=== PATIENT | female | born 1975 | race African-American/Black ===

== ENCOUNTER 2017-10-15 08:35 | Emergency (ER) | payer MEDICARE ==
[~2017-10-15] VITALS: Ht 170.2 cm; Wt 127.0 kg
[2017-10-15 08:38] VITALS: BP 135/90; PULSE 89; RESP 16; TEMP 98.5; O2SAT 97
[2017-10-15] MEDS ORDERED: COUM10TA PO (08:56)
[2017-10-15] MEDS ORDERED: MULTTAB67 PO (08:56)
[2017-10-15] MEDS ORDERED: AMIT50TA3 PO (08:56)
[2017-10-15] MEDS ORDERED: NIFE30TA61 PO (08:56)
[2017-10-15] MEDS ORDERED: TIZA4CAP3 PO (08:56)
[2017-10-15] MEDS ORDERED: CLON0.2T PO (08:56)
[2017-10-15] MEDS ORDERED: VALS1TAB70 PO (08:56)
[2017-10-15] MEDS ORDERED: NEXI40CA PO (08:56)
[2017-10-15] MEDS ORDERED: HYDR12.56 PO (08:56)
[2017-10-15] MEDS ORDERED: SODIUM CHLOR 0.9% 1000 ML INJ 1,000 ML IV SCH ×2 (09:23)
[2017-10-15] MEDS ORDERED: ONDANSETRON HCL 4 MG/2 ML VIAL IVP ONE (09:30)
[2017-10-15] MEDS ORDERED: DICYCLOMINE HCL 10 MG CAP PO ONE (09:30)
--- NOTE | 2017-10-15 09:31 | PD ---
HPI Chief Complaint: Flank/Kidney Pain Time Seen by Provider: 09:14 Travel History International Travel<30 days: No Contact w/Intl Traveler<30days: No Traveled to known affect area: No History of Present Illness HPI Patient is a 42-year-old female who presents the emergency room with complaints of right-sided flank pain. Patient reports that she has been having increased nausea, vomiting and diarrhea for the past 3 days. Patient has not been on any antibiotics recently, no sick contacts. Patient reports that she was supposed to go home to [place] today and she could not as she began to develop mild right -sided flank pain. Patient reports that nothing makes pain better or worse. Patient reports that she has history of renal disease, reports that her baseline creatinine is around 3.0. Patient reports that she is concerned that she may be dehydrated as she has right-sided kidney pain. Patient denies any hematuria, denies any dysuria, denies urinary urgency or frequency. Patient denies history of kidney stones. Patient reports that her physicians are following her creatinine. PFS Past Medical History Depression: Yes Hypertension: Yes Influenza Vaccination: Yes ?: Not Past Surgical History Abdominal Surgery: Yes (spleen removed) Cholecystectomy: Yes Other Surgery: Yes (filter right leg;tendon transfer to left arm. ) Social History Alcohol Use: No Tobacco Use: No Substance Use: No Allergies-Medications (Allergen,Severity, Reaction): Coded Allergies: No Known Allergies (Unverified , 10/15/17) Reported Meds & Prescriptions Reported Meds & Active Scripts Active Reported Multiple Vitamin 1 Tab 1 Tab PO DAILY Amitriptyline (Amitriptyline HCl) 50 Mg Tab 50 Mg PO HS Tizanidine (Tizanidine HCl) 4 Mg Cap 4 Mg PO TID Coumadin (Warfarin) Unknown Strength Tab Unknown Dose PO DAILY Nexium (Esomeprazole DR) 40 Mg Capdr 40 Mg PO DAILY Nifedipine ER 24 HR (Nifedipine) 30 Mg Tab 30 Mg PO DAILY Hydrochlorothiazide 12.5 Mg Tab 12.5 Mg PO DAILY Clonidine (Clonidine HCl) 0.2 Mg Tab 0.2 Mg PO BID Valsartan 320 Mg Tab 320 Mg PO DAILY Review of Systems General / Constitutional: No: Fever Eyes: No: Visual changes HENT: No: Headaches Cardiovascular: No: Chest Pain or Discomfort Respiratory: No: Shortness of Breath Gastrointestinal: Positive: Nausea, Vomiting, Diarrhea, Abdominal Pain, No: Constipation Genitourinary: Positive: Flank Pain, No: Urgency, Dysuria Musculoskeletal: No: Pain Skin: No Rash Neurologic: No: Weakness Psychiatric: No: Depression Endocrine: No: Polydipsia Hematologic/Lymphatic: No: Easy Bruising Physical Exam Narrative GENERAL: Mild distress SKIN: Focused skin assessment warm/dry. HEAD: Atraumatic. Normocephalic. EYES: Pupils equal and round. No scleral icterus. No injection or drainage. ENT: No nasal bleeding or discharge. Mucous membranes pink and moist. NECK: Trachea midline. No JVD. CARDIOVASCULAR: Regular rate and rhythm. No murmur appreciated. RESPIRATORY: No accessory muscle use. Clear to auscultation. Breath sounds equal bilaterally. GASTROINTESTINAL: Abdomen soft, non-tender, nondistended. Hepatic and splenic margins not palpable. MUSCULOSKELETAL: No obvious deformities. No clubbing. No cyanosis. No edema. Patient with right sided flank tenderness NEUROLOGICAL: Awake and alert. No obvious cranial nerve deficits. Motor grossly within normal limits. Normal speech. PSYCHIATRIC: Appropriate mood and affect; insight and judgment normal. Data Data Last Documented VS Vital Signs Date Time Temp Pulse Resp B/P (MAP) Pulse Ox O2 Delivery O2 Flow Rate FiO2 10/15/17 09:44 16 98 Room Air 10/15/17 08:38 98.5 89 135/90 (105) Orders Orders Complete Blood Count With Diff (10/15/17:23) Comprehensive Metabolic Panel (10/15/17:23) Lipase (10/15/17:23) Prothrombin Time / Inr (Pt) (10/15/17:23) Act Partial Throm Time (Ptt) (10/15/17:23) Urinalysis - C+S If Indicated (10/15/17:23) Ct Abd/Pel W/O Iv Contrast (10/15/17:23) Iv Access Insert/Monitor (10/15/17:23) Ecg Monitoring (10/15/17:) Oximetry (10/15/17:23) Ondansetron Inj (Zofran Inj) (10/15/17 09:30) Sodium Chlor 0.9% 1000 Ml Inj (Ns 1000 M (10/15/17 09:23) Sodium Chlor 0.9% 1000 Ml Inj (Ns 1000 M (10/15/17 09:23) Dicyclomine (Bentyl) (10/15/17 09:30) Chest, Single Ap (10/15/17 09:39) Morphine Inj (Morphine Inj) (10/15/17 12:30) Azithromycin (Zithromax) (10/15/17 13:30) Labs Laboratory Tests Test 10/15/17 09:20 White Blood Count 7.5 TH/MM3 Red Blood Count 4.87 MIL/MM3 Hemoglobin 12.0 GM/DL Hematocrit 37.6 % Mean Corpuscular Volume 77.2 FL Mean Corpuscular Hemoglobin 24.7 PG Mean Corpuscular Hemoglobin Concent 32.1 % Red Cell Distribution Width 15.9 % Platelet Count 413 TH/MM3 Mean Platelet Volume 8.2 FL Neutrophils (%) (Auto) 54.5 % Lymphocytes (%) (Auto) 35.1 % Monocytes (%) (Auto) 6.7 % Eosinophils (%) (Auto) 3.3 % Basophils (%) (Auto) 0.4 % Neutrophils # (Auto) 4.1 TH/MM3 Lymphocytes # (Auto) 2.6 TH/MM3 Monocytes # (Auto) 0.5 TH/MM3 Eosinophils # (Auto) 0.2 TH/MM3 Basophils # (Auto) 0.0 TH/MM3 CBC Comment DIFF FINAL Differential Comment Prothrombin Time 32.8 SEC Prothromb Time International Ratio 3.3 RATIO Activated Partial Thromboplast Time 42.1 SEC Urine Color YELLOW Urine Turbidity HAZY Urine pH 6.5 Urine Specific [place] 1.016 Urine Protein TRACE mg/dL Urine Glucose (UA) NEG mg/dL Urine Ketones NEG mg/dL Urine Occult Blood SMALL Urine Nitrite NEG Urine Bilirubin NEG Urine Urobilinogen LESS THAN 2.0 MG/DL Urine Leukocyte Esterase NEG Urine WBC 2 /hpf Urine Squamous Epithelial Cells 19 /hpf Urine Bacteria FEW /hpf Microscopic Urinalysis Comment CULT NOT INDICATED Blood Urea Nitrogen 11 MG/DL Creatinine 0.99 MG/DL Random Glucose 99 MG/DL Total Protein 8.0 GM/DL Albumin 3.6 GM/DL Calcium Level 8.5 MG/DL Alkaline Phosphatase 76 U/L Aspartate Amino Transf (AST/SGOT) 39 U/L Alanine Aminotransferase (ALT/SGPT) 39 U/L Total Bilirubin 0.6 MG/DL Sodium Level 136 MEQ/L Potassium Level 4.0 MEQ/L Chloride Level 100 MEQ/L Carbon Dioxide Level 29.6 MEQ/L Anion Gap 6 MEQ/L Estimat Glomerular Filtration Rate 74 ML/MIN Lipase 148 U/L MDM Medical Decision Making Medical Screen Exam Complete: Yes Emergency Medical Condition: Yes Medical Record Reviewed: Yes Interpretation(s) Vital Signs Date Time Temp Pulse Resp B/P (MAP) Pulse Ox O2 Delivery O2 Flow Rate FiO2 10/15/17 08:38 98.5 89 16 135/90 (105) 97 Differential Diagnosis renal failure, pyelonephritis, UTI, muscle strain, gastritis, gastroenteritis, colitis Narrative Course During the course of the patients emergency department visit, the patients history, examination, and differential diagnosis were reviewed with the patient. The patient was placed on a authorization coordinator with oximetry and frequent blood pressure monitoring. The patient had an IV access obtained and blood work sent for analysis. The patient was initially provided IV fluids as well as IV Zofran. The patients laboratory studies were reviewed and remarkable for CBC & BMP Diagram 10/15/17 09:20 Total Protein 8.0, Albumin 3.6, Calcium Level 8.5, Alkaline Phosphatase 76, Aspartate Amino Transf (AST/SGOT) 39 H, Alanine Aminotransferase (ALT/SGPT) 39, Total Bilirubin 0.6 Radiology studies were reviewed and remarkable for Last Impressions Chest X-Ray 10/15/17 0939 Signed Impressions: Service Date/Time: Sunday, October 15, 2017 10:14 - CONCLUSION: Questionable mild opacity at the left lung base which could represent atelectasis or consolidation. Otherwise, no acute finding is identified. Simon Ayers MD Abdomen/Pelvis CT 10/15/17 0923 Signed Impressions: Service Date/Time: Sunday, October 15, 2017 11:32 - CONCLUSION: 1. No renal stone or signs of urinary obstruction are present. 2. There is a 5.1 cm soft tissue density mass in the right adnexa in this patient post hysterectomy. This could represent a mildly enlarged right ovary or ovarian lesion. Consider correlating with transabdominal and transvaginal pelvis ultrasound at some point for further evaluation. Simon Ayers MD Patient reevaluated, patient is feeling much better at this time. I reviewed all labs and all studies as well as all incidental findings with patient in detail. Patient with left lower lobe pneumonia, she does now report coughing with thick greenish sputum. Plan to start her on azithromycin. Patient will follow up with the right-sided density in her adnexa with her manager data warehouse. She will return to the emergency room as needed. Diagnosis Primary Impression: Pneumonia Qualified Codes: J18.1 - Lobar pneumonia, unspecified organism Additional Impressions: Flank pain Adnexal mass Patient Instructions: General Instructions Departure Forms: Tests/Procedures, Work Release Enter return to work date: October 18, 2017 Additional Instructions: Please provide patient with a copy of their lab work and studies at discharge* * Please follow up with your primary care doctor in 2-3 days Return to the ER if symptoms worsen or progress Return to the ER as needed Please take all antibiotics as prescribed Please have your manager data warehouse follow up on mass seen on your CT study Med/Other Pt SpecificInfo: Prescription(s) given Scripts Azithromycin (Azithromycin) 500 Mg Tab 500 MG PO DAILY for Infection, #5 TAB 0 Refills Prov: Jyotsna Finley DO 10/15/17 Disposition: 01 DISCHARGE HOME Condition: Stable Jyotsna Finley DO October 15, 2017 09:31
[2017-10-15 09:44] VITALS: RESP 16; O2SAT 98
[2017-10-15 09:57] LABS: AUTOMATED NEUTROPHIL # 4.1 TH/MM3 (1.8-7.7); BASOPHIL % 0.4 % (0.0-2.0); EOSINOPHIL # 0.2 TH/MM3 (0-0.4); EOSINOPHIL % 3.3 % (0.0-4.0); HEMATOCRIT 37.6 % (35.0-46.0); LYMPH % 35.1 % (9.0-44.0); LYMPHOCYTE # 2.6 TH/MM3 (1.0-4.8); MEAN CELL VOLUME 77.2 FL (80.0-100.0); MEAN CORPUSCULAR HEMOGLOBIN 24.7 PG (27.0-34.0); MEAN CORPUSCULAR HGB CONC 32.1 % (32.0-36.0); MEAN PLATELET VOLUME 8.2 FL (7.0-11.0); MONO % 6.7 % (0.0-8.0); MONOCYTE # 0.5 TH/MM3 (0-0.9); NEUT % 54.5 % (16.0-70.0); PLATELET COUNT 413 TH/MM3 (150-450); RED BLOOD COUNT 4.87 MIL/MM3 (4.00-5.30); RED CELL DISTRIBUTION WIDTH 15.9 % (11.6-17.2); WHITE BLOOD COUNT 7.5 TH/MM3 (4.0-11.0)
[2017-10-15 10:06] LABS: INTERNATIONAL NORMALIZED RATIO 3.3 RATIO; PROTHROMBIN TIME - PATIENT 32.8 SEC (9.8-11.6)
[2017-10-15 10:14] LABS: BACTERIA, URINE FEW /hpf; BILIRUBIN, URINE NEG (NEG); BLOOD, URINE SMALL (NEG); GLUCOSE,URINE NEG (NEG); KETONE, URINE NEG (NEG); NITRITE,URINE NEG (NEG); PH, URINE 6.5 (5.0-8.5); SQUAMOUS EPITHELIAL CELL URINE 19 /hpf (0-5); URINE COLOR YELLOW (YELLW/STRAW); URINE LEUKOCYTE ESTERASE NEG (NEG)
[2017-10-15 10:21] LABS: ALBUMIN 3.6 GM/DL (3.4-5.0); ALT (GPT) 39 U/L (10-53); AST (GOT) 39 U/L (15-37); BICARBONATE 29.6 MEQ/L (21.0-32.0); BLOOD UREA NITROGEN 11 MG/DL (7-18); CALCIUM 8.5 MG/DL (8.5-10.1); CHLORIDE 100 MEQ/L (98-107); CREATININE 0.99 MG/DL (0.50-1.00); GLOMERULAR FILTRATION RATE 74 ML/MIN (>89); GLUCOSE,RANDOM 99 MG/DL (74-106); SODIUM (NA) 136 MEQ/L (136-145)
[2017-10-15 10:24] LABS: ALKALINE PHOSPHATASE 76 U/L (45-117); TOTAL BILIRUBIN ADULT 0.6 MG/DL (0.2-1.0)
[2017-10-15 10:30] VITALS: BP 146/88; PULSE 88; RESP 20; O2SAT 98
--- NOTE | 2017-10-15 10:41 | RADRPT ---
EXAM DATE/TIME: 10/15/2017 10:14 [facility] COMPARISON: No previous studies available for comparison. INDICATIONS : Shortness of breath. MEDICAL HISTORY : None. SURGICAL HISTORY : None. ENCOUNTER: Initial ACUITY: 1 day PAIN SCORE: 0/10 LOCATION: Bilateral chest FINDINGS: Portable AP view of the chest demonstrates a normal-sized cardiac silhouette. There is questionable o pacity at the left lung base partially obscuring the left heart border. No pleural effusion or pneumo thorax is identified. Bones and soft tissues demonstrate no acute abnormality. CONCLUSION: Questionable mild opacity at the left lung base which could represent atelectasis or consolidation. O therwise, no acute finding is identified. Simon Ayers MD on October 15, 2017 at 10:38 Board Certified Radiologist. This report was verified electronically.
--- NOTE | 2017-10-15 12:23 | RADRPT ---
EXAM DATE/TIME: 10/15/2017 11:32 [facility] COMPARISON: No previous studies available for comparison. INDICATIONS : Right flank pain for two days. ORAL CONTRAST: No oral contrast ingested. RADIATION DOSE: 8.54 CTDIvol (mGy) MEDICAL HISTORY : Hypertension. SURGICAL HISTORY : Splenectomy. Hysterectomy.Cholecystectomy. ENCOUNTER: Initial ACUITY: 2 days PAIN SCALE: 7/10 LOCATION: Right flank TECHNIQUE: Volumetric scanning of the abdomen and pelvis was performed. Using automated exposure control and ad justment of the mA and/or kV according to patient size, radiation dose was kept as low as reasonably achievable to obtain optimal diagnostic quality images. DICOM format image data is available electro nically for review and comparison. FINDINGS: Examination quality is less than small secondary to a low dose technique, patient left arm position, and patient body habitus. LOWER LUNGS: The visualized lower lungs are clear. LIVER: Homogeneous density without lesion. There is no dilation of the biliary tree. Cholecystectomy clips are present. SPLEEN: Surgically absent. There are clips in the left upper quadrant. PANCREAS: No definite abnormality is seen. KIDNEYS: Right kidney is normal in size without hydronephrosis, stone, or mass. Left kidney is smaller than th e right and rotated on its axis. No hydronephrosis, mass, or stone is seen. ADRENAL GLANDS: Not well visualized but no definite abnormality is seen. VASCULAR: There is no aortic aneurysm. There is an IVC filter present below the level of the renal veins. A lef t common iliac and left external iliac venous stent is present. BOWEL/MESENTERY: The stomach, small bowel, and colon demonstrate no acute abnormality. There is no free intraperitone al air or fluid. There is sigmoid diverticulosis. Appendix is normal. ABDOMINAL WALL: Within normal limits. Postsurgical changes are present anteriorly. RETROPERITONEUM: There is no lymphadenopathy. BLADDER: No wall thickening or mass. REPRODUCTIVE: By report, the uterus is absent. There is a soft tissue density mass in the right adnexa measuring 5. 1 x 4.1 cm. INGUINAL: There is no lymphadenopathy or hernia. MUSCULOSKELETAL: There are mild degenerative changes of the spine. No acute abnormality is seen. CONCLUSION: 1. No renal stone or signs of urinary obstruction are present. 2. There is a 5.1 cm soft tissue density mass in the right adnexa in this patient post hysterectomy. This could represent a mildly enlarged right ovary or ovarian lesion. Consider correlating with trans abdominal and transvaginal pelvis ultrasound at some point for further evaluation. Simon Ayers MD on October 15, 2017 at 12:15 Board Certified Radiologist. This report was verified electronically.
[2017-10-15 12:30] VITALS: BP 164/86; PULSE 86; RESP 18; O2SAT 98
[2017-10-15] MEDS ORDERED: MORPHINE SULFATE 4 MG/ML INJ IV PUSH ONE (12:30)
[2017-10-15] MEDS ORDERED: AZIT500T2 PO (13:29)
[2017-10-15] MEDS ORDERED: AZITHROMYCIN 250 MG TAB PO ONE (13:30)
== END 2017-10-15 13:57 | disposition home or self-care (01) ==
LOC: NEPC 08:35
DX: J18.1 Lobar pneumonia, unspecified organism (principal); R19.09 Other intra-abdominal and pelvic swelling, mass and lump; I10 Essential (primary) hypertension; F32.9 Major depressive disorder, single episode, unspecified
CPT/HCPCS: 71045; 74176; 80053; 81001; 83690; 85025; 85610; 85730; 96361; 96374; 96375; 99285; J2270; J2405; J7030

== ENCOUNTER 2017-11-24 15:35 | Emergency (ER) | payer MEDICARE ==
[~2017-11-24] VITALS: Ht 175.3 cm; Wt 122.5 kg
[~2017-11-24 15:35] MED LIST: AMIT50TA3 PO; AZIT500T2 PO; CLON0.2T PO; COUM10TA PO; HYDR12.56 PO; MULTTAB67 PO; NEXI40CA PO; NIFE30TA61 PO; TIZA4CAP3 PO; VALS1TAB70 PO
[2017-11-24 15:49] VITALS: BP 141/103; PULSE 86; RESP 18; TEMP 98.1; O2SAT 98
[2017-11-24] MEDS ORDERED: LEVOTAB PO (17:49)
--- NOTE | 2017-11-24 18:31 | PD ---
HPI Chief Complaint: Medical Clearance Time Seen by Provider: 17:33 Travel History International Travel<30 days: No Contact w/Intl Traveler<30days: No Traveled to known affect area: No History of Present Illness HPI Patient is a 42-year-old female who presents the emergency room for INR check. Patient reports that she has history of DVT, she currently is on Coumadin, reports that she recently moved to this area and does not have a physician to follow-up with. Reports that she needs her INR checked, it was last checked 2 weeks ago when November 10, INR was 3.1 at that time. Patient with no other complaints at this time. Denies any active bleeding PFSH Past Medical History Depression: Yes High Cholesterol: Yes GERD: Yes Hypertension: Yes Medical other: Yes (dvt) ?: Not Past Surgical History Abdominal Surgery: Yes (spleen removed) Cholecystectomy: Yes Hysterectomy: Yes Other Surgery: Yes (filter right leg;tendon transfer to left arm. ) Social History Alcohol Use: No Tobacco Use: No Substance Use: No Allergies-Medications (Allergen,Severity, Reaction): Coded Allergies: No Known Allergies (Unverified , 10/15/17) Reported Meds & Prescriptions Reported Meds & Active Scripts Active Reported Levocetirizine 5 Mg Tab 5 Mg PO DAILY Multiple Vitamin 1 Tab 1 Tab PO DAILY Amitriptyline (Amitriptyline HCl) 50 Mg Tab 150 Mg PO HS Coumadin (Warfarin) Unknown Strength Tab Unknown Dose PO DAILY Nexium (Esomeprazole DR) 40 Mg Capdr 40 Mg PO DAILY Nifedipine ER 24 HR (Nifedipine) 30 Mg Tab 30 Mg PO DAILY Hydrochlorothiazide 12.5 Mg Tab 12.5 Mg PO DAILY Clonidine (Clonidine HCl) 0.2 Mg Tab 0.2 Mg PO BID Valsartan 320 Mg Tab 320 Mg PO DAILY Review of Systems General / Constitutional: No: Fever Eyes: No: Visual changes HENT: No: Headaches Cardiovascular: No: Chest Pain or Discomfort Respiratory: No: Shortness of Breath Gastrointestinal: No: Abdominal Pain Genitourinary: No: Dysuria Musculoskeletal: No: Pain Skin: No Rash Neurologic: No: Weakness Psychiatric: No: Depression Endocrine: No: Polydipsia Hematologic/Lymphatic: No: Easy Bruising Physical Exam Narrative GENERAL: NAD SKIN: Focused skin assessment warm/dry. HEAD: Atraumatic. Normocephalic. EYES: Pupils equal and round. No scleral icterus. No injection or drainage. ENT: No nasal bleeding or discharge. Mucous membranes pink and moist. NECK: Trachea midline. No JVD. CARDIOVASCULAR: Regular rate and rhythm. No murmur appreciated. RESPIRATORY: No accessory muscle use. Clear to auscultation. Breath sounds equal bilaterally. GASTROINTESTINAL: Abdomen soft, non-tender, nondistended. Hepatic and splenic margins not palpable. MUSCULOSKELETAL: No obvious deformities. No clubbing. No cyanosis. No edema. NEUROLOGICAL: Awake and alert. No obvious cranial nerve deficits. Motor grossly within normal limits. Normal speech. PSYCHIATRIC: Appropriate mood and affect; insight and judgment normal. Data Data Last Documented VS Vital Signs Date Time Temp Pulse Resp B/P (MAP) Pulse Ox O2 Delivery O2 Flow Rate FiO2 11/24/17 15:49 98.1 86 18 141/103 (116) 98 Orders Orders Prothrombin Time / Inr (Pt) (11/24/17 15:48) Act Partial Throm Time (Ptt) (11/24/17 15:48) Labs Laboratory Tests Test 11/24/17 20:54 Prothrombin Time 27.6 SEC Prothromb Time International Ratio 2.7 RATIO Activated Partial Thromboplast Time 39.2 SEC MDM Medical Decision Making Medical Screen Exam Complete: Yes Emergency Medical Condition: Yes Medical Record Reviewed: Yes Interpretation(s) Vital Signs Date Time Temp Pulse Resp B/P (MAP) Pulse Ox O2 Delivery O2 Flow Rate FiO2 11/24/17 15:49 98.1 86 18 141/103 (116) 98 Differential Diagnosis coumadin coagulopathy Narrative Course initial INR hemolyzed, patient does not want to wait for redraw from lab and wishes to leave AMA AMA: The risks of leaving against medical advice without further evaluation treatment were discussed with the patient. These risks include cardiac dysfunction, cardiac dysrhythmia, possible heart attack, possible stroke or . The patient indicated understanding of these risks and appeared to have the capacity to make this decision. patient's phone number [phone] Diagnosis Primary Impression: Left against medical advice Additional Impression: Routine lab draw Referrals: [facility] Patient Instructions: General Instructions Additional Instructions: INR 2.7 Disposition: 01 DISCHARGE HOME Condition: Stable Jyotsna Finley DO Nov 24, 2017 18:31
[2017-11-24 21:23] LABS: INTERNATIONAL NORMALIZED RATIO 2.7 RATIO; PROTHROMBIN TIME - PATIENT 27.6 SEC (9.8-11.6)
== END 2017-11-24 22:09 | disposition home or self-care (01) ==
LOC: NEPD 15:35
DX: Z03.89 Encounter for observation for other suspected diseases and conditions ruled out (principal); Z86.718 Personal history of other venous thrombosis and embolism; Z79.01 Long term (current) use of anticoagulants
CPT/HCPCS: 85610; 85730; 99283